=== PATIENT | female | born 1960 | race Caucasian/White ===

== ENCOUNTER 2017-06-11 16:06 | Emergency (ER) | payer MEDICAID ==
[~2017-06-11] VITALS: Ht 175.3 cm; Wt 104.3 kg
--- NOTE | 2017-06-11 16:40 | NUR ---
PT MEDICATED ORDERED.
[2017-06-11] MEDS ORDERED: HYDROCODONE/APAP 5/325MG 1 EACH TABLET ONE (16:59)
[2017-06-11] MEDS ORDERED: HYDROCODONE/APAP 5/325MG 1 EACH TABLET PO ONE (17:00)
--- NOTE | 2017-06-11 17:20 | NUR ---
TERA CONTE AT FOR CRUTCHES TRAINING.
--- NOTE | 2017-06-11 17:38 | NUR ---
Patient discharged to home in stable condition. Written and verbal after care instructions given. Patient verbalizes understanding of instruction.
[2017-06-11 17:39] VITALS: BP 151/82
== END 2017-06-11 17:52 | disposition home or self-care (01) ==
LOC: ER 16:14
DX: S93.691A Other sprain of right foot, initial encounter (principal); I10 Essential (primary) hypertension; W18.09XA Striking against other object with subsequent fall, initial encounter; Y93.89 Activity, other specified; Y92.89 Other specified places as the place of occurrence of the external cause; Y99.8 Other external cause status
CPT/HCPCS: 73630; 99284; A4606; Z7610